=== PATIENT | female | born 1980 | race Caucasian/White ===

== ENCOUNTER → 2018-01-27 | Outpatient (CLI) | payer OTHER | LOC: MC.RAD 11:14 | DX: N64.59 Other signs and symptoms in breast (principal) ==

== ENCOUNTER 2018-02-04 13:58 | Inpatient (IN) | payer OTHER ==
[~2018-02-04] VITALS: Ht 165.1 cm; Wt 83.7 kg
[2018-03-02] MEDS ORDERED: ZANTAC 150MG T150 MG PO (12:48)
[2018-03-02] MEDS ORDERED: ALLEGRA 60MG TA60 MG PO (12:48)
[2018-03-02] MEDS ORDERED: SINGULAIR 110 MG/TAB PO (12:49)
[2018-03-02] MEDS ORDERED: PRINZIDE 12.5 M1 TA1 PO (12:49)
[2018-03-02] MEDS ORDERED: ALEVE 220MG220 MG PO (12:50)
[2018-03-02] MEDS ORDERED: EXCEDRIN1 TAB PO (12:51)
[2018-03-02] MEDS ORDERED: NATURAL IRON65 MG PO (12:52)
[2018-03-02] MEDS ORDERED: ULTRAM 50MG TAB50 MG PO (16:24)
[2018-03-29] VITALS (12 sets, daily range): BP systolic 92–124; BP diastolic 40–66; PULSE 55–92; TEMP 97.3–98.4
[2018-03-29] MEDS ORDERED: SINGULAIR 110 MG/TAB PO (06:07)
[2018-03-29] MEDS ORDERED: ZANTAC 150MG T150 MG PO (06:07)
[2018-03-29] MEDS ORDERED: ALLEGRA 180MG180 MG PO (06:07)
[2018-03-29] MEDS ORDERED: HYZAAR 50-12.1 UDTAB PO (06:08)
[2018-03-29] MEDS ORDERED: SLOW FE142 MG PO (06:08)
[2018-03-30 04:05] VITALS: BP 117/51; PULSE 54; TEMP 98.3
[2018-03-30 07:55] VITALS: BP 98/53; PULSE 68; TEMP 97.9
[2018-03-30] MEDS ORDERED: NORCO 325 MG-51 TAB PO (08:51)
[2018-03-30] MEDS ORDERED: MOTRIN 600600 MG/TAB PO (08:52)
== END 2018-03-30 14:10 | disposition home or self-care (01) | DRG 743 ==
LOC: OB 03-29 05:43 → INPTSU 03-29 05:43 → OB 03-29 07:30
PROVIDERS: Obstetrics & Gynecology
PROC: 0UT9FZZ Resection of Uterus, Via Natural or Artificial Opening With Percutaneous Endoscopic Assistance (ICD-10-PCS; principal; 2018-03-29 07:30)
PROC: 0UT7FZZ Resection of Bilateral Fallopian Tubes, Via Natural or Artificial Opening With Percutaneous Endoscopic Assistance (ICD-10-PCS; 2018-03-29 07:30)
PROC: 0UT1FZZ Resection of Left Ovary, Via Natural or Artificial Opening With Percutaneous Endoscopic Assistance (ICD-10-PCS; 2018-03-29 07:30)
PROC: 0JQC3ZZ Repair Pelvic Region Subcutaneous Tissue and Fascia, Percutaneous Approach (ICD-10-PCS; 2018-03-29 07:30)
DX: N80.0 Endometriosis of uterus (principal); N93.8 Other specified abnormal uterine and vaginal bleeding; N94.10 Unspecified dyspareunia; N39.3 Stress incontinence (female) (male); I10 Essential (primary) hypertension; F17.210 Nicotine dependence, cigarettes, uncomplicated; N81.10 Cystocele, unspecified; T78.3XXA Angioneurotic edema, initial encounter
CPT/HCPCS: A4314; J0690; J1170; J1885; J2250; J2310; J2405; J2550; J2704; J2710; J3010; J7120

== ENCOUNTER → 2018-02-17 | Outpatient (CLI) | payer OTHER | LOC: COL.RAD 07:50 | DX: K43.9 Ventral hernia without obstruction or gangrene (principal); K80.10 Calculus of gallbladder with chronic cholecystitis without obstruction ==

== ENCOUNTER 2018-03-02 11:53 | Day surgery (SDC) | payer OTHER ==
[~2018-03-02] VITALS: Ht 165.1 cm; Wt 84.6 kg
[2018-03-02 12:37] VITALS: BP 132/68; PULSE 82; TEMP 98.4
[2018-03-02 12:46] LABS: BASO % 0.4 % (0.0-2.0); EOS # 0.3 (0.0-0.7); EOS % 3.1 % (0-4.0); GRAN # 6.3 (1.4-6.5); GRAN % 64.6 % (42.2-75.2); HEMATOCRIT 38.2 % (37.0-47.0); HEMOGLOBIN 11.9 g/dl (12.5-16.0); LYMPH # 2.7 (1.2-3.4); LYMPH % 27.5 % (20.0-51.0); MEAN CELL VOLUME 78 fl (80.0-100.0); MEAN CORPUSCULAR HEMOGLOBIN 24 pg (27.0-31.0); MEAN CORPUSCULAR HGB CONC 31 g/dl (33.0-37.0); MEAN PLATELET VOLUME 10.6 fl (7.4-10.4); MONO # 0.4 (0.1-0.6); MONO % 4.2 % (1.7-9.3); PLATELET COUNT 305 K/mm3 (130-400); RED BLOOD COUNT 4.87 M/mm3 (4.10-5.30)
[2018-03-02] MEDS ORDERED: ZANTAC 150MG T150 MG PO (12:48)
[2018-03-02] MEDS ORDERED: ALLEGRA 60MG TA60 MG PO (12:48)
[2018-03-02] MEDS ORDERED: PRINZIDE 12.5 M1 TA1 PO (12:49)
[2018-03-02] MEDS ORDERED: SINGULAIR 110 MG/TAB PO (12:49)
[2018-03-02] MEDS ORDERED: ALEVE 220MG220 MG PO (12:50)
[2018-03-02] MEDS ORDERED: EXCEDRIN1 TAB PO (12:51)
[2018-03-02] MEDS ORDERED: NATURAL IRON65 MG PO (12:52)
[2018-03-02 12:55] LABS: ALBUMIN 4.3 gm/dL (3.5-5.0); BILIRUBIN,TOTAL 0.5 mg/dL (0.0-1.0); CALCIUM 9.3 mg/dL (8.4-10.2); CREATININE, serum 0.71 mg/dL (0.52-1.25); POTASSIUM 3.4 mmol/L (3.4-5.0); TOTAL PROTEIN 7.9 gm/dL (6.4-8.2)
[2018-03-02 15:41] VITALS: TEMP 97.9
[2018-03-02 16:05] VITALS: BP 100/51; PULSE 58
[2018-03-02 16:20] VITALS: BP 102/59; PULSE 60
[2018-03-02] MEDS ORDERED: ULTRAM 50MG TAB50 MG PO (16:24)
[2018-03-02 16:40] VITALS: BP 100/56; PULSE 62
[2018-03-02 17:10] VITALS: BP 104/65; PULSE 67
== END 2018-03-02 17:45 | disposition home or self-care (01) ==
LOC: SDCO 11:53
PROVIDERS: Surgery
DX: K80.12 Calculus of gallbladder with acute and chronic cholecystitis without obstruction (principal); F17.210 Nicotine dependence, cigarettes, uncomplicated; K21.9 Gastro-esophageal reflux disease without esophagitis; I10 Essential (primary) hypertension; Z88.5 Allergy status to narcotic agent; Z82.49 Family history of ischemic heart disease and other diseases of the circulatory system; Z82.3 Family history of stroke; Z80.0 Family history of malignant neoplasm of digestive organs
CPT/HCPCS: J0690; J1100; J1885; J2250; J2405; J2550; J2704; J3010; J7120

== ENCOUNTER 2021-05-05 11:59 | Emergency (ER) | payer OTHER ==
[~2021-05-05 11:59] MED LIST: ALEVE 220MG220 MG PO; ALLEGRA 180MG180 MG PO; ALLEGRA 60MG TA60 MG PO; EXCEDRIN1 TAB PO; HYZAAR 50-12.1 UDTAB PO; MOTRIN 600600 MG/TAB PO; NATURAL IRON65 MG PO; NORCO 325 MG-51 TAB PO; PRINZIDE 12.5 M1 TA1 PO; SINGULAIR 110 MG/TAB PO; SLOW FE142 MG PO; ULTRAM 50MG TAB50 MG PO; ZANTAC 150MG T150 MG PO
[2021-05-05 12:33] VITALS: TEMP 99.8
[2021-05-05 12:42] LABS: COLLECTION METHOD CLEAN CATCH
[2021-05-05 12:53] LABS: HEMATOCRIT 38.3 % (37.0-47.0); HEMOGLOBIN 12.6 g/dl (12.5-16.0); MEAN CELL VOLUME 83 fl (80.0-100.0); MEAN CORPUSCULAR HEMOGLOBIN 28 pg (27.0-31.0); MEAN CORPUSCULAR HGB CONC 33 g/dl (33.0-37.0); MEAN PLATELET VOLUME 11.7 fl (7.4-10.4); PLATELET COUNT 126 K/mm3 (130-400); RED BLOOD COUNT 4.59 M/mm3 (4.10-5.30); REDCELL DISTRIBUTION WIDTH-CV 14.3 % (11.5-14.5)
[2021-05-05 12:55] LABS: MUCOUS Present (NOT PRESENT); PH 5 (5-8); SQUAMOUS EPITHELIAL 0-2 /hpf (0-10); URINE APPEARANCE Clear (CLEAR/HAZY); URINE BACTERIA None Seen (NONE SEEN); URINE BILIRUBIN Negative (NEGATIVE); URINE BLOOD 1+ (NEGATIVE); URINE COLOR Yellow (YELLOW); URINE GLUCOSE Negative (NEGATIVE); URINE KETONE Negative (NEGATIVE); URINE LEUKOCYTE ESTERASE Negative (NEGATIVE); URINE NITRATE Negative (NEGATIVE); URINE PROTEIN(semi-quant) Negative (NEGATIVE); URINE RBC 0-2 /hpf (0-2)
[2021-05-05 13:02] LABS: ALBUMIN 3.3 gm/dL (3.5-5.0); BILIRUBIN,TOTAL 1.1 mg/dL (0.2-1.2); C-REACTIVE PROTEIN 9.79 mg/dL (0.00-0.50); CALCIUM 8.9 mg/dL (8.4-10.2); CREATININE, serum 0.74 mg/dL (0.57-1.11); POTASSIUM 3.8 mmol/L (3.5-4.5)
[2021-05-05 13:40] LABS: BAND 3 % (0-10); LYMPHOCYTE 37 % (20.0-51.0); METAMYELOCYTE 1 % (0-0); MYELOCYTE 4 % (0-0); NEUTROPHILS 51 % (42.0-75.2)
[2021-05-05 13:41] LABS: HYPOCHROMIA 1+; PLATELET ESTIMATE DECREASED (NORMAL)
[2021-05-05 16:50] VITALS: BP 156/94; PULSE 109
[2021-05-06 09:50] LABS: PATHOLOGY DIFF REVIEW OK
== END 2021-05-05 16:50 | disposition home or self-care (01) ==
LOC: COL.ER 11:59
PROVIDERS: Family Medicine
DX: R74.01 Elevation of levels of liver transaminase levels (principal); R59.0 Localized enlarged lymph nodes; D72.819 Decreased white blood cell count, unspecified; F17.210 Nicotine dependence, cigarettes, uncomplicated; Z20.822 Contact with and (suspected) exposure to COVID-19
CPT/HCPCS: J7030

== ENCOUNTER → 2021-05-07 | Outpatient (CLI) | payer OTHER | LOC: COL.VAS 07:41 | DX: M79.661 Pain in right lower leg (principal) ==

== ENCOUNTER 2021-05-11 18:06 | Inpatient (IN) | payer OTHER ==
[~2021-05-11] VITALS: Ht 167.6 cm; Wt 85.9 kg
[2021-05-11 19:38] LABS: HEMOGLOBIN 11.4 g/dl (12.5-16.0); MEAN CELL VOLUME 87 fl (80.0-100.0); MEAN CORPUSCULAR HEMOGLOBIN 28 pg (27.0-31.0); MEAN CORPUSCULAR HGB CONC 32 g/dl (33.0-37.0); MEAN PLATELET VOLUME 10.3 fl (7.4-10.4); PLATELET COUNT 248 K/mm3 (130-400); RED BLOOD COUNT 4.12 M/mm3 (4.10-5.30); REDCELL DISTRIBUTION WIDTH-CV 15.6 % (11.5-14.5)
[2021-05-11 19:54] LABS: ALBUMIN 3.2 gm/dL (3.5-5.0); BILIRUBIN,TOTAL 0.8 mg/dL (0.2-1.2); CALCIUM 8.7 mg/dL (8.4-10.2); CREATININE, serum 0.74 mg/dL (0.57-1.11); POTASSIUM 3.6 mmol/L (3.5-4.5); TOTAL PROTEIN 6.9 gm/dL (6.2-8.1)
[2021-05-11 20:02] LABS: TROPONIN-I 0.024 ng/mL (0.00-0.033)
[2021-05-11 20:33] LABS: BAND 3 % (0-10); LYMPHOCYTE 41 % (20.0-51.0); METAMYELOCYTE 2 % (0-0); NEUTROPHILS 50 % (42.0-75.2); PLATELET ESTIMATE NORMAL (NORMAL)
[2021-05-11 20:34] LABS: ANISOCYTOSIS 1+; MICROCYTOSIS 1+
[2021-05-12] VITALS (7 sets, daily range): BP systolic 125–163; BP diastolic 67–86; PULSE 96–115; TEMP 98.1–100.4
--- NOTE | 2021-05-12 00:30 | NUR ---
ADMITTED TO ROOM 310 PER BED. A&O X4. ORIENTED TO ROOM.
--- NOTE | 2021-05-12 01:22 | NUR ---
Vancomycin Initial Dosing Pharmacy Note Ordering provider: Shaji Bonilla MD Indication/duration: Meningitis x 5 days Relevant comorbidities: N/A LABS: WBC = 13.3, SCr = 0.74 Recommendation: Will draw troughs and follow levels. Loading dose: 2 grams Maintenance dose: 1.75 grams every 12 hours Trough goal: 15-20 ug/mL
--- NOTE | 2021-05-12 01:57 | NUR ---
MOTRIN GIVEN FOR RESENDIZ. LEVEL 4-5
[2021-05-12 02:14] LABS: COLLECTION METHOD CLEAN CATCH
[2021-05-12 02:20] LABS: MUCOUS Present (NOT PRESENT); PH 5 (5-8); SQUAMOUS EPITHELIAL 0-2 /hpf (0-10); URINE APPEARANCE Clear (CLEAR/HAZY); URINE BACTERIA None Seen (NONE SEEN); URINE BILIRUBIN Negative (NEGATIVE); URINE BLOOD Negative (NEGATIVE); URINE COLOR Yellow (YELLOW); URINE GLUCOSE Negative (NEGATIVE); URINE KETONE Negative (NEGATIVE); URINE LEUKOCYTE ESTERASE Negative (NEGATIVE); URINE NITRATE Negative (NEGATIVE); URINE PROTEIN(semi-quant) Negative (NEGATIVE); URINE RBC 0-2 /hpf (0-2); URINE UROBILINOGEN Negative (NEGATIVE)
--- NOTE | 2021-05-12 03:57 | NUR ---
SEE MAR FOR RELAN/BENADRYL GIVEN FOR RESENDIZ PER ORDER
--- NOTE | 2021-05-12 05:04 | NUR ---
Temp 100.4. NOTIFIED ALEXY VIDALES. NEW ORDER FOR TERRI NOW. SEE MAR.
[2021-05-12 10:05] LABS: ALBUMIN 2.7 gm/dL (3.5-5.0); BILIRUBIN,TOTAL 0.5 mg/dL (0.2-1.2); CREATININE, serum 0.72 mg/dL (0.57-1.11); MAGNESIUM 2.1 mg/dL (1.6-2.6); POTASSIUM 3.4 mmol/L (3.5-4.5); TOTAL PROTEIN 5.9 gm/dL (6.2-8.1)
[2021-05-12 10:28] LABS: HEMATOCRIT 31.4 % (37.0-47.0); HEMOGLOBIN 9.8 g/dl (12.5-16.0); MEAN CELL VOLUME 89 fl (80.0-100.0); MEAN CORPUSCULAR HEMOGLOBIN 28 pg (27.0-31.0); MEAN CORPUSCULAR HGB CONC 31 g/dl (33.0-37.0); MEAN PLATELET VOLUME 11.1 fl (7.4-10.4); PLATELET COUNT 228 K/mm3 (130-400); RED BLOOD COUNT 3.53 M/mm3 (4.10-5.30); REDCELL DISTRIBUTION WIDTH-CV 16.1 % (11.5-14.5)
[2021-05-12 14:31] LABS: BAND 3 % (0-10); LYMPHOCYTE 60 % (20.0-51.0); NEUTROPHILS 31 % (42.0-75.2)
[2021-05-12 14:32] LABS: ANISOCYTOSIS 1+; HYPOCHROMIA 2+; PLATELET ESTIMATE NORMAL (NORMAL)
[2021-05-12 14:58] LABS: GLUCOSE,CSF 53 mg/dL (40-70); TOTAL PROTEIN,CSF 40 mg/dL (15-45)
[2021-05-12 17:23] LABS: CSF APPEARANCE CLEAR; CSF COLOR COLORLESS; CSF MONONUCLEAR 94 % (70-100); CSF POLYMORPHONUCLEAR 6 % (0-6); CSF RBC < 1 /mm3 (0-0)
--- NOTE | 2021-05-12 18:41 | NUR ---
Cyndi met with the pt who stated her preference to return home once medically stable. The pt lives at home with her spouse, Hong, . The pt is independent on all ADLs and does not use any DME. The pt PCP is Anastacio Bell and gets her medications from [facility]. The pt states she does not have a DPOA-HC and is not interested in one at this time. D/c: Home with spouse
--- NOTE | 2021-05-12 19:00 | NUR ---
NO CARE PLAN ON CHART, ADDED POC FOR HEADACHE
[2021-05-13] VITALS (7 sets, daily range): BP systolic 128–154; BP diastolic 56–92; PULSE 100–125; TEMP 98–101.2
[2021-05-13 06:56] LABS: MEAN CELL VOLUME 88 fl (80.0-100.0); MEAN CORPUSCULAR HGB CONC 31 g/dl (33.0-37.0); MEAN PLATELET VOLUME 10.9 fl (7.4-10.4); PLATELET COUNT 212 K/mm3 (130-400); RED BLOOD COUNT 3.22 M/mm3 (4.10-5.30); REDCELL DISTRIBUTION WIDTH-CV 16.1 % (11.5-14.5)
[2021-05-13 06:58] LABS: HEMATOCRIT 28.3 % (37.0-47.0); HEMOGLOBIN 8.9 g/dl (12.5-16.0); MEAN CORPUSCULAR HEMOGLOBIN 28 pg (27.0-31.0)
[2021-05-13 07:03] LABS: CALCIUM 7.6 mg/dL (8.4-10.2); CREATININE, serum 0.67 mg/dL (0.57-1.11); MAGNESIUM 2.1 mg/dL (1.6-2.6); POTASSIUM 3.7 mmol/L (3.5-4.5)
--- NOTE | 2021-05-13 07:16 | NUR ---
PT CONTINUED TO HAVE MILD HEADACHE THIS SHIFT, EVEN WITH MOTRIN, REGLAN AND BENADRYL, FLEXERIL GIVEN X1 THIS AM FOR C/O NECK STIFFNESS. UP INDEPENDENTLY IN ROOM. IVF INFUSING PER PIV @100CC/HR.
[2021-05-13 07:55] LABS: PATHOLOGY DIFF REVIEW OK
[2021-05-13 08:52] LABS: BAND 10 % (0-10); EOSINOPHIL 1 % (0-4); LYMPHOCYTE 48 % (20.0-51.0); METAMYELOCYTE 3 % (0-0); NEUTROPHILS 33 % (42.0-75.2); NUCLEATED RED BLOOD CELL 1 (0-6)
[2021-05-13 08:53] LABS: ANISOCYTOSIS 1+; PLATELET ESTIMATE NORMAL (NORMAL)
--- NOTE | 2021-05-13 09:49 | NUR ---
Review for Transmission Precautions: Patient has received 24 hrs of empiric antibiotic and antiviral IV medication. Gram stain without bacteria seen. Will discontinue transmission precautions. Yessenia Armando RN
--- NOTE | 2021-05-13 10:54 | NUR ---
Patient c/o headache this morning that had been radiating down the neck and spine. Alisa was called and patient was given IV benadryl and reglan. Alisa thought patient may be experiencing a spinal headache from the LP she had done yesterday. Blood patch ordered to be done. Patient was taken by Gianfranco from OR for procedure to be done. Education provided to patient and family before going to the procedure.
--- NOTE | 2021-05-13 10:59 | NUR ---
Initial visit; Patient thanked Watch Leader for looking in on her and was receptive to Watch Leader keeping her in Watch Leader's prayers.
[2021-05-13 15:28] LABS: HIV 1/2 Antibodies Preliminary Positive; HIV-1p24 Antigen Non-Reactive
--- NOTE | 2021-05-13 18:30 | NUR ---
Patient has had a great deal of relief since having the blood patch done. She has only been rating her headaches at a 2 or 3. Patient was able to sit up and eat. F
--- NOTE | 2021-05-13 20:15 | NUR ---
pt's temp 101.2, flushed and hot, HR 120s, o2 sat 88% on RA, FLASH Giang, notified per phone. Orders rec'd, placed on 2L O2 per NC, cold wash cloth to forehead and chest. motrin and tylenol given. pt states her headache is coming back but different than the spinal RESENDIZ.
--- NOTE | 2021-05-13 22:00 | NUR ---
pt reporting diarrhea x2, notified FLASH Giang, also requested morphine for RESENDIZ pain. new orders rec'd, morphine given with good results.
[2021-05-14] VITALS (7 sets, daily range): BP systolic 126–147; BP diastolic 51–84; PULSE 51–101; TEMP 97.5–98.6
[2021-05-14 06:50] LABS: MEAN CELL VOLUME 88 fl (80.0-100.0); MEAN CORPUSCULAR HGB CONC 32 g/dl (33.0-37.0); MEAN PLATELET VOLUME 10.2 fl (7.4-10.4); PLATELET COUNT 214 K/mm3 (130-400); RED BLOOD COUNT 3.38 M/mm3 (4.10-5.30); REDCELL DISTRIBUTION WIDTH-CV 16.5 % (11.5-14.5)
[2021-05-14 06:54] LABS: HEMATOCRIT 29.8 % (37.0-47.0); HEMOGLOBIN 9.4 g/dl (12.5-16.0); MEAN CORPUSCULAR HEMOGLOBIN 28 pg (27.0-31.0)
--- NOTE | 2021-05-14 07:00 | NUR ---
Pt was resting in bed during bedside shift report. Pt stated that her stomach feels a little quezy, saltine crackers given. Pt denies any other needs, call light within reach
[2021-05-14 07:04] LABS: CALCIUM 8.3 mg/dL (8.4-10.2); CREATININE, serum 0.64 mg/dL (0.57-1.11); POTASSIUM 3.6 mmol/L (3.5-4.5)
--- NOTE | 2021-05-14 07:29 | NUR ---
pt weaned to 1L O2 this am, afebrile and HR WNL this morning. requested maureen medina and zena @[id number] for RESENDIZ. continues to have diarrhea, stool spec sent to lab. would like anti-diarrheal order.
[2021-05-14 08:14] LABS: EOSINOPHIL 1 % (0-4); LYMPHOCYTE 62 % (20.0-51.0); NEUTROPHILS 32 % (42.0-75.2)
[2021-05-14 08:15] LABS: ANISOCYTOSIS 1+; PLATELET ESTIMATE NORMAL (NORMAL)
[2021-05-14 08:16] LABS: POLYCHROMASIA 1+
--- NOTE | 2021-05-14 08:45 | NUR ---
Pt reported that her stomach was feeling better, she did order some breakfast. Morning medications given. Pt reported have some loose stool last night, speciment sent down, awaiting results so that pt can have imodium. No other needs, shower discussed, she stated she wanted one when her daughter arrives.
--- NOTE | 2021-05-14 11:51 | NUR ---
Pt has showered and is back in bed. She did eat breakfast and tolerated it with no loose stool. Imodium was given mid morning per order. Pts daughter has been in room most of the morning. Pt reported that her top of neck/bottom of head is still hurting. Notified FLASH Menon, new medication ordered and given. Called vanc trough to pharmacy, ordered to given Vanc dose as ordered. No other needs, pt now ordering some lunch
[2021-05-14 14:40] LABS: HSV 2 DNA PCR QUAL Not Detected (())
--- NOTE | 2021-05-14 17:03 | NUR ---
Pt was informed of possible HIV, she has been very concerned over this as expected. She has discussed with her which has been here most of the afternoon. FLASH Menon also when in just recently to help answer any questions. Pt is aware that more tests are being done to determine accuracy. Pt did report that the Norflex did help, but then had a stress headache due to the new information. All questions have been answered. No other needs, call light within reach
--- NOTE | 2021-05-14 18:00 | NUR ---
Pts has left, checked in on her. She denies any needs and is currently on the phone.
--- NOTE | 2021-05-15 00:02 | NUR ---
Upon entering patient's room, patient has red face and neck, slowed Vancomycin to 150ml/hr, PRN benadryl given now, patient denies issues with breathing, Call placed to Cortney Ziegler to notify- no new orders at this time- continue to monitor.
[2021-05-15 04:40] VITALS: BP 160/90; PULSE 111; TEMP 100.3
--- NOTE | 2021-05-15 05:02 | NUR ---
Patient SPO2@87% on room air this am, O2 @ 4l PER NC ADDED to maintain SPO2@97%, B/P elevated, Temp elevated, Pulse elevated- Call placed to Cortney VIDALES to notify.
[2021-05-15 07:39] VITALS: BP 144/84; PULSE 93; TEMP 99.3
[2021-05-15 08:03] LABS: PATHOLOGY DIFF REVIEW OK
[2021-05-15 08:07] LABS: MEAN CELL VOLUME 88 fl (80.0-100.0); MEAN CORPUSCULAR HGB CONC 32 g/dl (33.0-37.0); MEAN PLATELET VOLUME 10.4 fl (7.4-10.4); PLATELET COUNT 230 K/mm3 (130-400); RED BLOOD COUNT 3.43 M/mm3 (4.10-5.30); REDCELL DISTRIBUTION WIDTH-CV 16.7 % (11.5-14.5)
--- NOTE | 2021-05-15 08:11 | NUR ---
Pt assessment complete. Pt sitting up in bed upon entry, she is A/O x4. Her breathing is even and unlabored on 3L O2 via NC. Pt denies SOB at this time. Sat's >90%, oxygen turned down to 2L. Pt reports a headache, back of the head to the top bilaterally. She reports when she has a headache and fever she notices increased congestion. Having some nausea with the headache. Pt asking about a potential central line. POC discussed with patient. No needs at this time. Call light within reach.
[2021-05-15 08:12] LABS: HEMATOCRIT 30.2 % (37.0-47.0); HEMOGLOBIN 9.5 g/dl (12.5-16.0); MEAN CORPUSCULAR HEMOGLOBIN 28 pg (27-31)
[2021-05-15 08:14] LABS: ALBUMIN 2.7 gm/dL (3.5-5.0); BILIRUBIN,TOTAL 0.4 mg/dL (0.2-1.2); CALCIUM 8.6 mg/dL (8.4-10.2); CREATININE, serum 0.68 mg/dL (0.57-1.11); POTASSIUM 3.6 mmol/L (3.5-4.5); TOTAL PROTEIN 6.2 gm/dL (6.2-8.1)
[2021-05-15 09:14] LABS: BAND 8 % (0-10); LYMPHOCYTE 70 % (20.0-51.0); NEUTROPHILS 19 % (42.0-75.2)
[2021-05-15 09:15] LABS: ANISOCYTOSIS 1+; PLATELET ESTIMATE NORMAL (NORMAL)
[2021-05-15 12:06] VITALS: BP 155/80; PULSE 88; TEMP 98.4
[2021-05-15 12:33] LABS: CD4 ABSOLUTE 3935 (540-1600); T HELPER (CD4) INDUCER CELLS 75.3 % (29.0-59.0); WBC 5226 mm3 (1500-4000)
[2021-05-15 16:59] VITALS: BP 141/85; PULSE 96; TEMP 98.2
--- NOTE | 2021-05-15 18:42 | NUR ---
Pt able to ambulate in the halls, states she felt more energized after this. Headache improved through the day. No nausea present. Had one episode of diarrhea this am, improved with PRN Immodium. Resting in bed at this time. Call light within reach.
[2021-05-15 20:05] VITALS: BP 146/86; PULSE 100; TEMP 98.2
[2021-05-15 23:42] VITALS: BP 149/73; PULSE 92; TEMP 98.6
[2021-05-16 04:31] VITALS: BP 141/77; PULSE 92; TEMP 98.2
--- NOTE | 2021-05-16 05:00 | NUR ---
Patient updated on plan of care, tolerated antibiotics, intermittently c/o headache - medicated per MAR, independent in cares, ambulated in hallway during shift,
[2021-05-16 07:01] LABS: HEMOGLOBIN 10.1 g/dl (12.5-16.0); MEAN CELL VOLUME 89 fl (80.0-100.0); MEAN CORPUSCULAR HEMOGLOBIN 28 pg (27-31); MEAN CORPUSCULAR HGB CONC 31 g/dl (33.0-37.0); PLATELET COUNT 236 K/mm3 (130-400); RED BLOOD COUNT 3.66 M/mm3 (4.10-5.30); REDCELL DISTRIBUTION WIDTH-CV 16.8 % (11.5-14.5)
[2021-05-16 07:02] LABS: HEMATOCRIT 32.7 % (37.0-47.0)
[2021-05-16 07:20] LABS: CALCIUM 9.2 mg/dL (8.4-10.2); CREATININE, serum 0.75 mg/dL (0.57-1.11); POTASSIUM 3.7 mmol/L (3.5-4.5)
[2021-05-16 07:30] VITALS: BP 137/79; PULSE 88; TEMP 98.3
--- NOTE | 2021-05-16 07:46 | NUR ---
Pt assessment complete. Pt is sitting up in bed upon entry. She is A/O x4. Her breathing is even and unlabored on RA, wore O2 during the night . Pt denies any SOB. Currently reporting a slight headache associated with some nausea, PRN Motrin administered. Pt plans to walk the halls today, encouragement given. No further needs at this time. Call light within reach.
[2021-05-16 08:06] LABS: ANISOCYTOSIS 1+; BAND 9 % (0-10); EOSINOPHIL 1 % (0-4); LYMPHOCYTE 53 % (20.0-51.0); NEUTROPHILS 31 % (42.0-75.2); PLATELET ESTIMATE NORMAL (NORMAL)
--- NOTE | 2021-05-16 10:11 | NUR ---
Follow-up visit; Patient continues to have headaches and didn't rest well last night. Lindsey thanked Solar Applications Development Engineer for looking in on her and keeping her in Solar Applications Development Engineer's prayers.
[2021-05-16 11:02] VITALS: BP 143/82; PULSE 93; TEMP 98.7
[2021-05-16] MEDS ORDERED: ZOFRAN ODT4 MG PO (12:33)
[2021-05-16] MEDS ORDERED: NORFLEX 10100 MG/TAB PO (12:35)
[2021-05-16] MEDS ORDERED: ATIVAN 0.50.5 MG/TAB PO (12:47)
--- NOTE | 2021-05-16 15:32 | NUR ---
Discharge paperwork and instructions reviewed with patient. All questions answered at this time. IV to LFA dc'd catheter tip intact. Pt walked out of facility by a staff member at this time.
[2021-05-17 08:17] LABS: PATHOLOGY DIFF REVIEW OK +
[2021-05-21 16:42] LABS: HIV 1 RNA IU Not Detected (<=39); HIV 1 RNA LOG Not Detected Log/mL (<=1.59)
== END 2021-05-16 15:33 | disposition home or self-care (01) | DRG 97 ==
LOC: COL.ER 18:06 → MEDICAL 21:35
PROVIDERS: Internal Medicine Infectious Disease; Physician Assistant; Student in an Organized Health Care Education/Training Program; ADMIT Internal Medicine
PROC: 009U3ZX Drainage of Spinal Canal, Percutaneous Approach, Diagnostic (ICD-10-PCS; principal; 2021-05-12)
PROC: B01B1ZZ Fluoroscopy of Spinal Cord using Low Osmolar Contrast (ICD-10-PCS; 2021-05-12)
DX: G03.0 Nonpyogenic meningitis (principal); J96.01 Acute respiratory failure with hypoxia; D47.9 Neoplasm of uncertain behavior of lymphoid, hematopoietic and related tissue, unspecified; J90 Pleural effusion, not elsewhere classified; J98.11 Atelectasis; I10 Essential (primary) hypertension; L50.8 Other urticaria; Z21 Asymptomatic human immunodeficiency virus [HIV] infection status; Z87.891 Personal history of nicotine dependence
CPT/HCPCS: OP; 99223-AI; 99233-AI; A9284; J0133; J0696; J1200; J1630; J1650; J2270; J2360; J2405; J2765; J3010; J3370; J7030; J7040; J7050; Q9967

== ENCOUNTER 2023-10-09 14:27 | Emergency (ER) | payer OTHER ==
[~2023-10-09 14:27] MED LIST changes: +ATIVAN 0.50.5 MG/TAB PO; +NORFLEX 10100 MG/TAB PO; +ZOFRAN ODT4 MG PO
[2023-10-09 14:32] VITALS: TEMP 98.3
[2023-10-09 15:48] LABS: BASO % 0.5 % (0.0-2.0); EOS # 0.3 K/mm3 (0.0-0.7); EOS % 3.7 % (0.0-4.0); GRAN # 4.8 K/mm3 (1.4-6.5); GRAN % 57.4 % (42.2-75.2); HEMATOCRIT 39.2 % (37.0-47.0); HEMOGLOBIN 13.2 g/dl (12.5-16.0); LYMPH # 2.7 K/mm3 (1.2-3.4); LYMPH % 32.4 % (20.0-51.0); MEAN CELL VOLUME 83 fl (80.0-100.0); MEAN CORPUSCULAR HEMOGLOBIN 28 pg (27-31); MEAN CORPUSCULAR HGB CONC 34 g/dl (33.0-37.0); MONO # 0.4 K/mm3 (0.1-0.6); MONO % 5.3 % (1.7-9.3); PLATELET COUNT 255 K/mm3 (130-400); RED BLOOD COUNT 4.71 M/mm3 (4.10-5.30); REDCELL DISTRIBUTION WIDTH-CV 13.6 % (11.5-14.5)
[2023-10-09 15:50] LABS: INR 1.1 (0.8-3.0); PROTHROMBIN TIME 11.9 SECONDS (9.7-12.8)
[2023-10-09 15:52] LABS: PARTIAL THROMBOPLASTIN TIME 35.8 SECONDS (26.0-37.0)
[2023-10-09 16:01] LABS: ALANINE AMINOTRANSFERASE 24 U/L (0-55); ALBUMIN 3.8 g/dL (3.5-5.0); ALKALINE PHOSPHATASE 105 U/L (40-150); ANION GAP 10 mmol/L (7-16); AST,SGOT 21 U/L (5-34); BILIRUBIN,TOTAL 0.3 mg/dL (0.2-1.2); BLOOD UREA NITROGEN 14 mg/dL (7-19); CALCIUM 10.3 mg/dL (8.4-10.2); CHLORIDE 105 mEq/L (98-107); CREATININE, serum 0.81 mg/dL (0.57-1.11); GLUCOSE 145 mg/dL (70-99); MAGNESIUM 2.2 mg/dL (1.6-2.6); POTASSIUM 3.4 mEq/L (3.5-4.5); SODIUM 140 mEq/L (136-145); TOTAL PROTEIN 7.8 g/dl (6.2-8.1)
[2023-10-09 16:08] LABS: TROPONIN-I < 0.010 ng/mL (0.00-0.033)
[2023-10-09] MEDS ORDERED: Losartan 25 MG TAB PO ONE (16:30)
[2023-10-09] MEDS ORDERED: ZESTRIL 10MG10 MG PO (16:36)
[2023-10-09] MEDS ORDERED: Lisinopril 10 MG TAB PO ONE (16:45)
[2023-10-09 17:00] VITALS: BP 147/88; PULSE 73
== END 2023-10-09 17:00 | disposition home or self-care (01) ==
LOC: COL.ER 14:27
PROVIDERS: Family Medicine
DX: I10 Essential (primary) hypertension (principal); Z87.891 Personal history of nicotine dependence
CPT/HCPCS: J1920

== ENCOUNTER → 2023-11-25 | Outpatient (CLI) | payer OTHER ==
[~2023-11-25] MED LIST changes: +ZESTRIL 10MG10 MG PO
== END ==
LOC: MC.RAD 09:47
DX: Z12.31 Encounter for screening mammogram for malignant neoplasm of breast (principal)